=== PATIENT | female | born 1985 | race American Indian/Alaskan Native ===

== ENCOUNTER 2018-03-19 10:38 | Emergency (ER) | payer OTHER ==
[2018-03-19 10:58] VITALS: RESP 18; TEMP 99
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
--- NOTE | 2018-03-19 13:35 | RAD ---
Date of service: 03/19/2018 HISTORY: TRAUMA COMPARISON: None available. FINDINGS: BONES: Alignment maintained. No acute displaced fracture identified DISC SPACES: Unremarkable. SOFT TISSUES: Unremarkable. OTHER FINDINGS: None. IMPRESSION: Unremarkable radiographs of the thoracic spine.
[2018-03-19 14:55] VITALS: BP 115/68; PULSE 83; O2SAT 98
== END 2018-03-19 14:45 | disposition home or self-care (01) ==
LOC: H.ER 10:38
DX: S29.9XXA Unspecified injury of thorax, initial encounter (principal); Y04.0XXA Assault by unarmed brawl or fight, initial encounter; Y92.89 Other specified places as the place of occurrence of the external cause

== ENCOUNTER 2018-09-21 15:27 | Emergency (ER) | payer OTHER ==
[2018-09-21 15:37] VITALS: O2SAT 100
[2018-09-21 17:06] LABS: BASO % 0.4 % (0.0-2.0); EOS % 0.3 % (0.0-4.0); LYMPH # 1.5 K/uL (1.0-4.3); LYMPH % 16.2 % (20.0-40.0); MEAN CELL VOLUME 86.9 fl (81.0-99.0); MEAN CORPUSCULAR HEMOGLOBIN 28.4 pg (27.0-31.0); MEAN CORPUSCULAR HGB CONC 32.7 g/dL (33.0-37.0); MEAN PLATELET VOLUME 7.5 fl (7.2-11.7); MONO # 0.6 K/uL (0.0-0.8); MONO % 6.5 % (0.0-10.0); NEUT # 7.2 K/uL (1.8-7.0); NEUT % 76.6 % (50.0-75.0); NRBC % 0.1 % (0.0-0.0); RBC 4.59 Mil/uL (3.80-5.20); RED CELL DISTRIBUTION WIDTH 13.6 % (11.5-14.5); WHITE BLOOD COUNT 9.4 K/uL (4.8-10.8)
[2018-09-21 17:12] LABS: SQUAMOUS EPITHIAL < 1 /hpf (0-5); URINE BACTERIA RARE (<OCC); URINE BILIRUBIN NEGATIVE (NEGATIVE); URINE BLOOD MODERATE (NEGATIVE); URINE CLARITY CLEAR (Clear); URINE COLOR YELLOW (YELLOW); URINE GLUCOSE (UA) NEG (NEGATIVE); URINE LEUKOCYTE ESTERASE NEG Leu/uL (Negative); URINE PROTEIN NEGATIVE (NEGATIVE); URINE UROBILINOGEN 0.2-1.0 mg/dL (0.2-1.0)
[2018-09-21 17:14] LABS: BLOOD UREA NITROGEN 5 mg/dl (7-17); CALCIUM 9.4 mg/dL (8.4-10.2); GFR NON-AFRICAN AMERICAN > 60
--- NOTE | 2018-09-21 17:31 | ED PDOC ---
HPI: Female Pain Time Seen by Provider: 09/21/18 15:57 Chief Complaint (Nursing): Female Genitourinary Chief Complaint (Provider): Vaginal Bleeding in History Per: Patient History/Exam Limitations: no limitations Onset/Duration Of Symptoms: Days (x1) Current Symptoms Are (Timing): Still Present Additional Complaint(s): 33 year old female presents to the ED for evaluation of vaginal bleeding while . Patient notes that she took a test five days ago which was positive and yesterday developed some vaginal spotting with abdominal cramping similar to her usual menstrual cramping. Today, she reports the bleeding worsened and required her to wear a pad, but denies any passage of clots or tissue. Additionally denies nausea and vomiting. She states in the past, she has ended previous pregnancies with elective termination. Of note, patient is being treated for a UTI. PMD: Doroteo Li I Past Medical History Reviewed: Historical Data, Nursing Documentation, Vital Signs Vital Signs: Last Vital Signs Temp 99.0 F 09/21/18 15:32 Pulse 113 H 09/21/18 15:32 Resp 16 09/21/18 15:32 BP 134/76 09/21/18 15:32 Pulse Ox 100 09/21/18 15:32 - Medical History PMH: No Chronic Diseases - Surgical History Other surgeries: elective terminations of pregnancies - Family History Family History: States: Diabetes, Hypertension - Home Medications Home Medications: Ambulatory Orders Medication Instructions Recorded Ibuprofen [Motrin] 600 mg PO TID 7 Days tab 03/19/18 - Allergies Allergies/Adverse Reactions: Allergies Allergy/AdvReac Type Severity Reaction Status Date / Time kiwi Allergy RASH Verified 09/21/18 15:32 Review of Systems ROS Statement: Except As Marked, All Systems Reviewed And Found Negative Gastrointestinal: Positive for: Abdominal Pain (cramping). Negative for: Nausea, Vomiting Genitourinary Female: Positive for: Vaginal Bleeding (but without passing of clots / tissue) Physical Exam - Reviewed Nursing Documentation Reviewed: Yes Vital Signs Reviewed: Yes - Physical Exam Appears: Positive for: No Acute Distress Head Exam: Positive for: ATRAUMATIC, NORMAL INSPECTION, NORMOCEPHALIC Skin: Positive for: Normal Color, Warm, DRY Eye Exam: Positive for: Normal appearance ENT: Positive for: Normal ENT Inspection Neck: Positive for: Normal, Painless ROM, Supple Cardiovascular/Chest: Positive for: Regular Rate, Rhythm Respiratory: Positive for: Normal Breath Sounds. Negative for: Respiratory Distress Gastrointestinal/Abdominal: Positive for: Normal Exam, Soft. Negative for: Tenderness, Guarding, Rebound Back: Positive for: Normal Inspection Extremity: Positive for: Normal ROM (all extremities) Neurological/Psych: Positive for: Awake, Alert, Oriented (x3). Negative for: Motor/Sensory Deficits - Laboratory Results Result Diagrams: 09/21/18 16:43 09/21/18 16:43 Lab Results: Urine Color Yellow (YELLOW) 09/21/18 16:43 Urine Clarity Clear (Clear) 09/21/18 16:43 Urine pH 6.0 (5.0-8.0) 09/21/18 16:43 Ur Specific Ora 1.006 (1.003-1.030) 09/21/18 16:43 Urine Protein Negative mg/dL (NEGATIVE) 09/21/18 16:43 Urine Glucose (UA) Neg mg/dL (NEGATIVE) 09/21/18 16:43 Urine Ketones Negative mg/dL (NEGATIVE) 09/21/18 16:43 Urine Blood Moderate (NEGATIVE) 09/21/18 16:43 Urine Nitrate Negative (NEGATIVE) 09/21/18 16:43 Urine Bilirubin Negative (NEGATIVE) 09/21/18 16:43 Urine Urobilinogen 0.2-1.0 mg/dL (0.2-1.0) 09/21/18 16:43 Ur Leukocyte Esterase Neg Rosmery/uL (Negative) 09/21/18 16:43 Urine RBC (Auto) 1 /hpf (0-3) 09/21/18 16:43 Urine Microscopic WBC 1 /hpf (0-5) 09/21/18 16:43 Ur Squamous Epith Cells < 1 /hpf (0-5) 09/21/18 16:43 Urine Bacteria Rare (<OCC) 09/21/18 16:43 - ECG O2 Sat by Pulse Oximetry: 100 (RA) Pulse Ox Interpretation: Normal Medical Decision Making Medical Decision Making: Time: 1642 Impression: vaginal bleeding in early , most likely miscarriage Initial Plan: --Type and screen --BMP --Beta-HCG quant --CBC with differential --Urinalysis --Preg 1st trimester/ob TV US --Reevaluation Time: 1852 EXAM: US Obstetrical, Complete <14 weeks CLINICAL HISTORY: 5wks + vag bleed TECHNIQUE: Transvaginal and transabdominal imaging of the maternal pelvis and a <14 week gestation with image documentation. Study was technically limited due to patient's inability to fully cooperate. COMPARISON: None provided. FINDINGS: GESTATION: There is no intrauterine gestation identified. There is fluid within the endometrial cavity. UTERUS: Unremarkable. No myometrial mass. CERVIX: Closed. Unremarkable. OVARIES: Unremarkable. No mass. Incidental small subcentimeter cyst left ovary. FREE FLUID: No free fluid. IMPRESSION: No intrauterine gestation identified. Fluid possibly representing blood within the endometrial cavity. Subcentimeter cyst left ovary. Clinical correlation advised. Electronically signed on Sep 21, 2018 6:53:34 PM EDT by: Jaime Cedillo M.D., Certified by [facility], Diagnostic Radiology Time: 2022 -- Beta-Ehsan undetectable. Labs otherwise normal, most likely a miscarriage. Patient instructed to follow up with PMD for further management. Scribe Attestation: Documented by Jaylene Robles, acting as a scribe for Molly Gilbert MD. Provider Scribe Attestation: All medical record entries made by the Scribe were at my direction and personally dictated by me. I have reviewed the chart and agree that the record accurately reflects my personal performance of the history, physical exam, medical decision making, and the department course for this patient. I have also personally directed, reviewed, and agree with the discharge instructions and disposition. Disposition - Clinical Impression Clinical Impression: Vaginal bleeding, Miscarriage - Patient ED Disposition Is Patient to be Admitted: No Counseled Patient/Family Regarding: Studies Performed, Diagnosis, Need For Followup - Disposition [facility] Disposition: Routine/Home Disposition Time: 20:23 Condition: STABLE Instructions: Miscarriage (DC), Bleeding With (DC) Forms: [employer] (Namibian) Print Language: OCCITAN
[2018-09-21 20:27] VITALS: BP 135/79; PULSE 81; RESP 18; TEMP 98.6
--- NOTE | 2018-09-22 14:25 | US ---
Date of service: 09/21/2018 PROCEDURE: OB Pelvic Ultrasound HISTORY: 5 wks preg, vag bleed COMPARISON: None available. FINDINGS: UTERUS: Uterus measures 6.7 x 3.7 x 4.4 Endometrial stripe measures 7 mm. Gestational sac: No living IUP identified. Heart rate: Not detected. Rule out spontaneous . Note that the possibility of ectopic cannot be excluded on this exam therefore recommend follow-up serial serum beta HCG and serial pelvic ultrasounds. CERVIX: Measures 3.7 cm. Long fluid is seen within the endocervical canal possibly representing hemorrhage. RIGHT OVARY: Measures 3.0 x 1.8 x 2.6 cm. No mass lesion. Normal flow. LEFT OVARY: Measures 2.7 x 1.2 x 2.4 cm. No solid mass. Normal flow. Small cyst measuring 6 mm in greatest dimension FREE FLUID: None. OTHER FINDINGS: None. IMPRESSION: No evidence of intrauterine gestation. There is small amount of fluid in the endocervical canal possibly representing hemorrhage spontaneous Ectopic cannot be excluded therefore clinical correlation recommended. Follow-up serial serum beta HCG and serial ultrasound recommended.. . Small left adnexal cyst This report was placed in PA review folder followup
== END 2018-09-21 20:43 | disposition home or self-care (01) ==
LOC: H.ER 15:27
DX: O03.9 Complete or unspecified spontaneous abortion without complication (principal); O26.851 Spotting complicating pregnancy, first trimester; N83.202 Unspecified ovarian cyst, left side; O03.88 Urinary tract infection following complete or unspecified spontaneous abortion; O34.81 Maternal care for other abnormalities of pelvic organs, first trimester; Z3A.14 14 weeks gestation of pregnancy

== ENCOUNTER 2018-10-01 07:32 | Emergency (ER) | payer OTHER ==
[2018-10-01 07:40] VITALS: RESP 18; O2SAT 100; BMI 21.2
[2018-10-01] MEDS ORDERED: Sodium Chloride 0.9% 1,000 ML IV STA (07:57)
--- NOTE | 2018-10-01 07:58 | ED PDOC ---
HPI: General Adult Time Seen by Provider: 10/01/18 07:36 Chief Complaint (Nursing): Dizziness/Lightheaded Chief Complaint (Provider): Weakness, numbness right 5th digit History Per: Patient History/Exam Limitations: no limitations Onset/Duration Of Symptoms: Days Have you had recent travel within the past 21 days to any of the following countries: [place], [place], [place] or [place]?: No Current Symptoms Are (Timing): Still Present Additional History Per: Patient Additional Complaint(s): 33yo female with history of vestibular migraines, comes to ER reporting intermittent numbness and tingling to her right hand near the right 5th digit 1 week. She also reports feeling weak and dizzy for the past 1 day. Patient additionally reports she had a miscarriage 1 week ago, and thinks her symptoms might be due to "hormone changes." Otherwise, she denies any headache, focal weakness, vision changes, vomiting, nausea, abdominal pain, chest pain or shortness of breath. Patient states she has a 8 month history of vestibular migraines and has had similar symptoms in the past. PMD: Guillermo Past Medical History Reviewed: Historical Data, Nursing Documentation, Vital Signs Vital Signs: Last Vital Signs Temp 97 F L 10/01/18 07:39 Pulse 105 H 10/01/18 07:39 Resp 18 10/01/18 07:39 BP 119/70 10/01/18 07:39 Pulse Ox 100 10/01/18 07:39 - Medical History PMH: Migraine - Surgical History Surgical History: No Surg Hx - Family History Family History: States: Diabetes, Hypertension - Home Medications Home Medications: Ambulatory Orders Medication Instructions Recorded Ibuprofen [Motrin] 600 mg PO TID 7 Days tab 03/19/18 Ibuprofen [Motrin] 600 mg PO TID 7 Days tab 10/01/18 - Allergies Allergies/Adverse Reactions: Allergies Allergy/AdvReac Type Severity Reaction Status Date / Time kiwi Allergy RASH Verified 09/21/18 15:32 Review of Systems ROS Statement: Except As Marked, All Systems Reviewed And Found Negative Constitutional: Positive for: Weakness. Negative for: Fever, Chills Eyes: Negative for: Vision Change Cardiovascular: Negative for: Chest Pain Respiratory: Negative for: Shortness of Breath Gastrointestinal: Negative for: Nausea, Vomiting Neurological: Positive for: Numbness (right hand), Dizziness. Negative for: Weakness, Headache Physical Exam - Reviewed Nursing Documentation Reviewed: Yes Vital Signs Reviewed: Yes - Physical Exam Appears: Positive for: Non-toxic, No Acute Distress Head Exam: Positive for: ATRAUMATIC, NORMAL INSPECTION, NORMOCEPHALIC Skin: Positive for: Normal Color Eye Exam: Positive for: Normal appearance, EOMI, PERRL Neck: Positive for: Normal, Painless ROM, Supple Cardiovascular/Chest: Positive for: Regular Rate, Rhythm. Negative for: Tachycardia Respiratory: Positive for: Normal Breath Sounds. Negative for: Respiratory Distress Pulses-Radial (L): 2+ Pulses-Radial (R): 2+ Gastrointestinal/Abdominal: Positive for: Normal Exam, Soft Back: Positive for: Normal Inspection. Negative for: L CVA Tenderness, R CVA Tenderness Extremity: Positive for: Normal ROM (FROM of all extremities), Capillary Refill (< 2 seconds). Negative for: Tenderness, Pedal Edema, Deformity Neurological/Psych: Positive for: Awake, Alert, Symmetric/Intact Strength (5/5 strength all extremities), Oriented (x 3), Gait (steady), Motor/Sensory Deficits (+ tingles to lateral right hand near right 5th digit with wrist flexion), inspector and clipper II-XII (intact). Negative for: Facial Droop - ECG O2 Sat by Pulse Oximetry: 100 (RA) Pulse Ox Interpretation: Normal - Progress ED Course And Treament: 910: Stable. AAOx3. Numbness and tingles likely form carpal tunnel. Pt. to fu with pcp. Take motrin as needed and change work habits. Dizziness is chronic. Feels better currently. Medical Decision Making Medical Decision Making: Weakness, numbness in right hand Plan: -- IV Fluids -- Patient initially offered Antivert but declined stating "I have tried it all" -- patient amenable to IV Reglan ScribeAttestation: Documented byAlejandra Romero, acting as a scribe for Zac Walden MD. Provider ScribeAttestation: All medical record entries made by the Scribe were at my direction and personally dictated by me. I have reviewed the chart and agree that the record accurately reflects my personal performance of the history, physical exam, medical decision making, and the department course for this patient. I have also personally directed, reviewed, and agree with the discharge instructions and disposition. Disposition - Clinical Impression Clinical Impression: Dizziness, Carpal tunnel syndrome - Patient ED Disposition Is Patient to be Admitted: No Counseled Patient/Family Regarding: Diagnosis, Need For Followup, Rx Given - Disposition Referrals: [facility] [Outside] - 10/02/18 Disposition: Routine/Home Disposition Time: 09:12 Condition: STABLE Additional Instructions: Return if not better in 3 days. Prescriptions: Ibuprofen [Motrin] 600 mg PO TID 7 Days tab Instructions: Carpal Tunnel Syndrome, Dizziness, Nonvertigo, (DC) Forms: [employer] (Swedish), [facility] ED School/Work Excuse
[2018-10-01 12:13] VITALS: BP 115/60; PULSE 70; TEMP 98.8
== END 2018-10-01 09:13 | disposition home or self-care (01) ==
LOC: H.ER 07:32
DX: R42 Dizziness and giddiness (principal); G56.00 Carpal tunnel syndrome, unspecified upper limb
CPT/HCPCS: 99285; J2765; J7030